=== PATIENT | male | born 1995 | race Caucasian/White ===

== ENCOUNTER 2021-09-09 20:14 | Emergency (ER) | payer MEDICAID ==
[2021-09-09 21:52] LABS: Basophils % (Auto) 0.4 % (0.0-1.8); Eosinophils # (Auto) 0.2 K/mm3 (0.0-0.4); Eosinophils % (Auto) 2.1 % (0.0-4.3); Hemoglobin 12.2 gm/dl (11.8-15.2); Lymphocytes # (Auto) 1.5 K/mm3 (1.2-5.4); Lymphocytes % (Auto) 16.5 % (13.4-35.0); Mean Corpuscular HGB Conc 32 % (32-34); Mean Corpuscular Volume 91 fl (84-94); Monocytes # (Auto) 0.7 K/mm3 (0.0-0.8); Monocytes % (Auto) 8.4 % (0.0-7.3); Platelet Count 271 K/mm3 (140-440); Red Blood Count 4.19 M/mm3 (3.65-5.03); Red Cell Distribution Width 12.7 % (13.2-15.2)
[2021-09-09 22:10] LABS: BUN/Creatinine Ratio 15; Blood Urea Nitrogen 12 mg/dL (9-20); Calcium 9.5 mg/dL (8.4-10.2); Hemolysis Index 17
--- NOTE | 2021-09-10 00:56 | Emergency Department Report ---
ED Psych HPI - General Chief Complaint: Psych Stated Complaint: SI Time Seen by Provider: 09/09/21 21:08 Source: patient, EMS Mode of arrival: Ambulatory - History of Present Illness Initial Comments: PATIENT GOT OFF A BUS AND TOLD PD HE IS SI. PATIENT IS AWAKE ALERT AND ORIENTED DENIES HI MD Complaint: suicidal ideation -: Sudden, hour(s) Associated Psychiatric Symptoms: depression History of same: No Quality: resolved prior to arrival Improves With: none Worsens With: none - Related Data Home Medications Medication Instructions Recorded Confirmed Last Taken No Known Home Medications [No 09/10/21 09/10/21 Unknown Reported Home Medications] Allergies Allergy/AdvReac Type Severity Reaction Status Date / Time No Known Allergies Allergy Unverified 09/09/21 20:22 ED Review of Systems ROS: Stated complaint: SI Other details as noted in HPI Constitutional: denies: chills, fever Eyes: denies: eye pain, eye discharge, vision change ENT: denies: ear pain, throat pain Respiratory: denies: cough, shortness of breath, wheezing Cardiovascular: denies: chest pain, palpitations Endocrine: no symptoms reported Gastrointestinal: denies: abdominal pain, nausea, diarrhea Genitourinary: denies: urgency, dysuria Musculoskeletal: denies: back pain, joint swelling, arthralgia Skin: denies: rash, lesions Neurological: denies: headache, weakness, paresthesias Psychiatric: denies: anxiety, depression Hematological/Lymphatic: denies: easy bleeding, easy bruising ED Past Medical Hx - Past Medical History Previous Medical History?: Yes Hx Psychiatric Treatment: Yes (BIPOLAR) - Medications Home Medications: Home Medications Medication Instructions Recorded Confirmed Last Taken Type No Known Home Medications [No 09/10/21 09/10/21 Unknown History Reported Home Medications] ED Physical Exam - General Limitations: No Limitations General appearance: alert, anxious - Head Head exam: Present: atraumatic, normocephalic - Eye Eye exam: Present: normal appearance - ENT ENT exam: Present: mucous membranes moist - Neck Neck exam: Present: normal inspection - Respiratory Respiratory exam: Present: normal lung sounds bilaterally. Absent: respiratory distress - Cardiovascular Cardiovascular Exam: Present: regular rate, normal rhythm. Absent: systolic murmur, diastolic murmur, rubs, gallop - GI/Abdominal GI/Abdominal exam: Present: soft, normal bowel sounds - Rectal Rectal exam: Present: deferred - Extremities Exam Extremities exam: Present: normal inspection - Back Exam Back exam: Present: normal inspection - Neurological Exam Neurological exam: Present: alert, oriented X3 - Psychiatric Psychiatric exam: Present: normal affect, depressed, anxious - Skin Skin exam: Present: warm, dry, intact, normal color. Absent: rash ED Course Vital Signs 09/09/21 09/10/21 09/10/21 20:15 01:06 10:54 Temperature 98.2 F 98.4 F 98.5 F Pulse Rate 68 90 90 Respiratory 18 18 16 Rate Blood Pressure 150/90 148/88 116/70 [Right] O2 Sat by Pulse 98 98 98 Oximetry ED Medical Decision Making - Lab Data Result diagrams: 09/09/21 21:33 09/09/21 21:33 Critical care attestation.: If time is entered above; I have spent that time in minutes in the direct care of this critically ill patient, excluding procedure time. ED Disposition Clinical Impression: Depression, Suicidal ideation Disposition: [address] [place] [address] Is pt being admited?: No Does the pt Need Aspirin: No Condition: Stable Referrals: PRIMARY CARE, [Primary Care Provider] - 3-5 Days
--- NOTE | 2021-09-10 11:59 | Consultation ---
History of Present Illness - Reason for Consult Consult date: 09/10/21 Reason for consult: suicidal ideation - History of Present Psychiatric Illness The patient is a 26 year old male with history of bipolar, and psychosis who presents to the ED with suicidal ideation. In my interview with the patient, he states he has " dementia, mental breakdown." The patient presents with disorganized thoughts. He endorses suicidal ideation and auditory hallucinations however, he states he does not know what the voices are saying. PAST PSYCHIATRIC HISTORY: Diagnoses: Bipolar, Psychosis Suicide attempts or Self-harm behavior: Denies Prior psychiatric hospitalizations: yes Substance Abuse history: Denies Previous psychiatric medications tried: Denies Outpatient treatment: unknown PAST MEDICAL HISTORY: None reported or document Family Psychiatric History: None reported or documented SOCIAL HISTORY Marital Status: Single Living Arrangements: lives with mom and sister Employment Status: Unemployed Access to guns/weapons: Denies Education: 12th grade History of Abuse: denies Legal History: denies REVIEW OF SYSTEMS Constitutional: Negative for weight loss ENT: Negative for stridor Respiratory: Negative for cough or hemoptysis All other systems reviewed and are negative MENTAL STATUS EXAMINATION General Appearance and Behavior: Age appropriate, good hygiene, wearing appropriate clothes, calm and cooperative polite with questioning. Cooperation: engaged Psychomotor Behavior: Psychomotor normal Mood: Depressed Affect and affective range: congruent with stated mood Thought Process: goal directed Thought Content: reality oriented Speech: Normal volume, Regular rate and rhythm, Suicidal Ideation: Denies Homicidal Ideation: Denies Hallucinations: Auditory Delusions: paranoid Impulse Control: Unimpaired Insight and Judgment: Limited Memory: Normal Attention: attentive Orientation: a/o Assessment and Plan (1) Bipolar Current Visit: Yes Status: Acute 1013 Treatment Plan The patient to comply with previously prescribed medications Risks, benefits and alternatives of medications discussed with the patient, questions answered and consent obtained from patient. PSYCHOTHERAPY: Supportive psychotherapy provided MEDICAL: Per primary team DELIRIUM PRECAUTIONS: Please re-orient patient frequently, keep lights on during the day, and minimize benzodiazepines and opiates as these medications could worsen patient's confusion. ONCOLOGY PHARMACIST: Defer to primary DISPOSITION:Recommend acute inpatient psychiatric hospitalization at this time. FOLLOW-UP: Will follow. Thank you for the consult. Please contact with any questions and/or concerns. Medications and Allergies Medications and Allergies Allergies Allergy/AdvReac Type Severity Reaction Status Date / Time No Known Allergies Allergy Unverified 09/09/21 20:22 Home Medications Medication Instructions Recorded Confirmed Last Taken Type No Known Home Medications [No 09/10/21 09/10/21 Unknown History Reported Home Medications] Mental Status Exam - Vital signs Last Vital Signs Temp 98.5 F 09/10/21 10:54 Pulse 90 09/10/21 10:54 Resp 16 09/10/21 10:54 BP 116/70 09/10/21 10:54 Pulse Ox 98 09/10/21 10:54 Results Result Diagrams: 09/09/21 21:33 09/09/21 21:33 Abnormal lab results 09/09/21 09/09/21 09/09/21 Range/Units 21:33 21:33 21:33 RDW 12.7 L (13.2-15.2) % [place] % (Auto) 8.4 H (0.0-7.3) % Seg Neutrophils % 72.6 H (40.0-70.0) % Salicylates < 0.3 L (2.8-20.0) mg/dL Acetaminophen 5.0 L (10.0-30.0) ug/mL All other labs normal.
--- NOTE | 2021-09-10 12:59 | Event Note ---
Date: 09/10/21 S: No events reported overnight O: Vital Signs - 8 hr 09/10/21 10:54 Temperature 98.5 F Pulse Rate 90 Respiratory 16 Rate Blood Pressure 116/70 [Right] O2 Sat by Pulse 98 Oximetry A: Bipolar disorder P: 1013, awaiting psych eval
[2021-09-10 13:52] LABS: Amorphous Crystals,Urine Few; Bacteria,Urine 1+ /HPF (Negative); Bilirubin,Urine NEG (Negative); Blood,Urine SM (Negative); Color,Urine Yellow (Yellow); Mucus,Urine FEW /HPF; Protein,Urine <15 mg/dL mg/dL (Negative); Urobilinogen,Urine < 2.0 mg/dL (<2.0)
[2021-09-10 13:55] LABS: Benzodiazepines Screen,Urine Negative; Cannabinoid Screen,Urine Negative; Cocaine Screen,Urine Negative; Methadone Screen,Urine Negative; Opiate Screen,Urine Negative
[2021-09-10 14:20] LABS: Amphetamine Screen,Urine Positive
[2021-09-10 17:55] VITALS: BP 143/93
== END 2021-09-10 17:56 ==
LOC: ED 20:14
DX: R45.851 Suicidal ideations (principal); F32.A Depression, unspecified; F31.9 Bipolar disorder, unspecified; Z20.822 Contact with and (suspected) exposure to COVID-19
CPT/HCPCS: 36415; 80048; 80307; 81001; 85025; 99285; U0003; 80320; G0480